=== PATIENT | female | born 1950 | race Caucasian/White ===

== ENCOUNTER 2016-07-19 19:14 | Inpatient (IN) | payer BC, OTHER ==
[~2016-07-19] VITALS: Ht 157.5 cm; Wt 92.3 kg
[~2016-07-19 19:14] MED LIST: CALC500C73 PO; CHOL100010 PO; CLOP1TAB15 PO; CZR50 PO; DULA0.5I INJ; FLUT0.15; GABA-113 PO; INSU100I2 SQ; INSUINJ4 SC; KFL500 PO; LPT/40 PO; LVNIS100 SQ; MULT-506 PO; PROBCAP PO; RXC5 PO; TRIATAB3 PO; VITA100C4 PO; VLM2 PO; VNTHFA/IN INH
[2016-07-19] MEDS ORDERED: ONDANSETRON INJ 2 MG/ML 2 ML VIAL IV STA ×2 (21:46→23:38)
[2016-07-19] MEDS ORDERED: SODIUM CHLORIDE 0.9% 1000ML 1,000 ML IV STA (21:46)
[2016-07-19] MEDS ORDERED: SODIUM CHLORIDE 0.9% 500ML 500 ML IV STA (21:46)
--- NOTE | 2016-07-19 22:17 | DIAGNOSTIC IMAGING REPORT ---
CHEST ONE VIEW PORTABLE CLINICAL HISTORY: cough/vomiting nausea COMPARISON STUDY: 01/27/2016 FINDINGS: Chronic parenchymal and/or pleural scarring left midlung and left base. No acute infiltrate. Diaphragms are smooth. IMPRESSION: Chronic change. No acute process. Electronically signed by: Joe Reeder M.D. 07/19/2016 10:15 PM Dictated Date/Time: 07/19/2016 10:15 PM
[2016-07-19 22:50] LABS: BASO % 0.1 %; BASO ABS # 0.01 K/uL (0-0.2); COMPLETE YES; EOS % 0.2 %; HEMATOCRIT 37.7 % (37-47); IG% 0.6 %; LYMPH % 24.4 %; LYMPH ABS # 2.36 K/uL (1.2-3.4); MEAN CELL VOLUME 79.4 fL (80-100); MEAN CORPUSCULAR HEMOGLOBIN 25.9 pg (25-34); MEAN CORPUSCULAR HGB CONC 32.6 g/dl (32-36); MEAN PLATELET VOLUME 9.2 fL (7.4-10.4); MONO % 11.6 %; NEUT % 63.1 %; PLATELET COUNT 398 K/uL (130-400); RED BLOOD COUNT 4.75 M/uL (4.2-5.4); WHITE BLOOD COUNT 9.68 K/uL (4.8-10.8)
[2016-07-19 23:05] LABS: BUN/CREATININE RATIO 18.8 (10-20); CALCIUM 9.6 mg/dl (8.5-10.1); CREATININE 1.7 mg/dl (0.60-1.20); MAGNESIUM 2.1 mg/dl (1.8-2.4)
[2016-07-19 23:07] LABS: INR 1.1 (0.9-1.1); PARTIAL THROMBOPLASTIN RATIO 0.9; PROTHROMBIN TIME (PATIENT) 11.3 SECONDS (9.0-12.0)
[2016-07-19 23:16] LABS: ALB/GLOB RATIO 1.1 (0.9-2); CKMB/CK RATIO 3.4 (0-3.0); THYROID STIMULATING HORMONE 0.844 uIu/ml (0.300-4.500)
[2016-07-19] MEDS ORDERED: CALC500C70 PO (23:22)
[2016-07-19] MEDS ORDERED: INSU3INJ3 SC (23:22)
[2016-07-19] MEDS ORDERED: GABA800T PO (23:22)
[2016-07-19] MEDS ORDERED: CHOL1CAP57 PO (23:22)
[2016-07-19] MEDS ORDERED: VTME100 PO (23:22)
[2016-07-19] MEDS ORDERED: CZR50 PO (23:22)
[2016-07-19] MEDS ORDERED: CEPH500C2 PO (23:22)
[2016-07-20 01:09] LABS: URINE APPEARANCE CLEAR (CLEAR); URINE BILIRUBIN NEG (NEG); URINE COLOR DK YELLOW; URINE EPITHELIAL CELL AUTO >30 /lpf (0-5); URINE NITRITE NEG (NEG); URINE SPECIFIC GRAVITY 1.026 (1.000-1.030); UROBILINOGEN NEG (NEG); ZZUR CULT IF INDIC CLEAN CATCH NO
[2016-07-20 01:14] LABS: MANUAL MICROSCOPIC REQUIRED? NO; REVIEW REQ? NO
[2016-07-20] MEDS ORDERED: IV FLUIDS COMPLETED PRN (01:15)
[2016-07-20 02:45] VITALS: BP 128/76; PULSE 74; TEMP 36.9; O2SAT 96; Ht 157.5 cm; Wt 92.3 kg
[2016-07-20] MEDS: ONDANSETRON INJ 2 MG/ML 2 ML VIAL IV PRN ×2 (03:09→20:46)
[2016-07-20] MEDS ORDERED: ACETAMINOPHEN 325 MG TAB PO PRN (04:15)
--- NOTE | 2016-07-20 05:45 | History and Physical ---
History & Physical Date & Time of Service: Jul 20, 2016 at ~ 00:30 . Chief Complaint: Nausea and vomiting . Primary Care Physician: Joe Renee M.D. . History of Present Illness Source: patient, clinic records, hospital records 66-year-old female followed by Dr. Renee. History of hypertension, diabetes, and other problems noted below. Developed chills, nausea, vomiting, and loose stools about 48 hours prior to admission. No fever or sweats. No abdominal pain. No hematemesis, melena, hematochezia. Recently prescribed doxycycline for bronchitis. . Past Medical/Surgical History Chronic and Resolved Medical Problems: (1) Garza's palsy Status: Chronic (2) CKD (chronic kidney disease), stage III Status: Chronic (3) CVA (cerebral vascular accident) Status: Chronic (4) DM type 2 (diabetes mellitus, type 2) Status: Chronic (5) Dyslipidemia Status: Chronic (6) Gastroparesis Status: Chronic (7) GERD (gastroesophageal reflux disease) Status: Chronic (8) Meniere disease Status: Chronic (9) BEE (obstructive sleep apnea) Status: Chronic (10) Osteoarthritis Status: Chronic (11) Osteoporosis Status: Chronic Surgical Problems: (1) H/O laminectomy Status: Chronic (2) H/O oophorectomy Status: Chronic (3) History of carpal tunnel surgery of left wrist Status: Chronic (4) History of carpal tunnel surgery of right wrist Status: Chronic (5) History of total left hip arthroplasty Permanent Comment: Status: Chronic (6) L femur ORIF Status: Chronic (7) S/P EHSAN (total abdominal hysterectomy) Status: Chronic (8) S/P trigger finge . Family History Diabetes mellitus FATHER Social History Smoking Status: Former Smoker Alcohol Use: none Immunizations History of Influenza Vaccine: Yes History of Tetanus Vaccine?: Unknown History of Pneumococcal: Yes History of Hepatitis B Vaccine: Unknown Multi-Drug Resistant Organisms History of MDRO: No Allergies Coded Allergies: Diphenhydramine (Verified Allergy, Mild, "SHAKING", 07/19/16) Promethazine (Verified Allergy, Mild, "SHAKING", 07/19/16) Estradiol (Verified Allergy, Unknown, UNKNOWN, 07/19/16) NSAIDs (Verified Allergy, Unknown, PT SWELLS "HEAD TO TOE", 07/19/16) Home Medications Scheduled Atorvastatin (Lipitor), 40 MG PO QAM Calcium/Vitamin D (Os-Rylan 500 Plus D), 1 TAB PO DAILY Cephalexin Monohydrate (Keflex), 500 MG PO QID Cholecalciferol (Vitamin D3), 1,000 UNITS PO DAILY Dulaglutide (Trulicity), 1 SYR INJ WK Gabapentin (Neurontin), 800 MG PO TID Insulin Detemir (Levemir Flextouch), 22 UNITS SC AMPM Insulin Lispro (Human) (Humalog Kwikpen), 7-10 UNITS SQ TID Losartan Potassium (Losartan Potassium), 50 MG PO DAILY Multivitamin (Multivitamin), 1 TAB PO QAM Probiotic Product (Planbus), 1 CAP PO HS Tocopheryl Acet,Dl-Alpha (Vitamin E), Unknown Dose PO DAILY Triamterene/Hctz (Triamterene/Hctz 37.5-25MG), 1 TAB PO QAM Scheduled PRN Albuterol Hfa (Ventolin Hfa), 2 PUFFS INH QID PRN for Shortness of Breath Diazepam (Diazepam), 1 TAB PO UD PRN for VERTIGO Review of Systems Constitutional: + chills, No fever, No sweats, No weight loss Eyes: No diplopia, No worsening of vision ENT: + nasal symptoms, No sore throat Respiratory: + cough, + shortness of breath (mild) Cardiovascular: No chest pain, No edema, No palpitations Abdomen: + problem reported (as noted above in HPI) Musculoskeletal: + joint pain Genitourinary - Female: No dysuria, No hematuria Neurologic: + problem reported (diabetic neuropathy), No memory loss, No weakness Endocrine: No excessive thirst Hematologic / Lymphatic: + abnormal bleeding/bruising (bruises easily), No swollen lymph nodes Integumentary: + new/changing skin lesions, + rash Physical Exam Vital Signs Date Time Temp Pulse Resp B/P Pulse Ox O2 Delivery O2 Flow Rate FiO2 07/20/16 02:25 76 20 156/88 96 07/20/16 01:39 76 18 152/76 98 Room Air 07/19/16 23:23 70 18 122/80 94 Room Air 07/19/16 22:27 75 18 110/64 95 Room Air 07/19/16 22:26 95 Room Air 07/19/16 22:22 85 20 133/76 97 Room Air 07/19/16 22:22 97 Room Air 07/19/16 22:15 76 07/19/16 22:01 85 20 133/76 97 Room Air 94 96/74 101 110/64 07/19/16 19:27 37.0 83 18 163/87 96 Room Air General Appearance: WD/WN, no apparent distress Head: normocephalic, atraumatic Eyes: normal inspection, PERRL, EOMI, sclerae normal ENT: normal ENT inspection, hearing grossly normal, pharynx normal Neck: supple, thyroid normal, no JVD, trachea midline Respiratory/Chest: + rhonchi (few), + wheezing (mild) Cardiovascular: regular rate, rhythm, no edema, no gallop, no JVD Abdomen/GI: non tender, soft, no organomegaly, no pulsatile mass, + pertinent finding (quite bowel sounds) Extremities/Musculoskelatal: normal inspection, no calf tenderness, no pedal edema Neurologic/Psych: account executive II-XII nml as tested (PERRL, EOMI), no motor/sensory deficits (motor strength grossly intact), normal mood/affect, oriented x 3 Skin: normal color, warm/dry, no rash Lymphatic: no adenopathy Diagnostics Laboratory Results Results Past 24 Hours Test 07/19/16 22:22 07/19/16 22:24 07/20/16 00:00 Range/Units White Blood Count 9.68 4.8-10.8 K/uL Red Blood Count 4.75 4.2-5.4 M/uL Hemoglobin 12.3 12.0-16.0 g/dL Hematocrit 37.7 37-47 % Mean Corpuscular Volume 79.4 80-100 fL Mean Corpuscular Hemoglobin 25.9 25-34 pg Mean Corpuscular Hemoglobin Concent 32.6 32-36 g/dl Platelet Count 398 130-400 K/uL Mean Platelet Volume 9.2 7.4-10.4 fL Neutrophils (%) (Auto) 63.1 % Lymphocytes (%) (Auto) 24.4 % Monocytes (%) (Auto) 11.6 % Eosinophils (%) (Auto) 0.2 % Basophils (%) (Auto) 0.1 % Neutrophils # (Auto) 6.11 1.4-6.5 K/uL Lymphocytes # (Auto) 2.36 1.2-3.4 K/uL Monocytes # (Auto) 1.12 0.11-0.59 K/uL Eosinophils # (Auto) 0.02 0-0.5 K/uL Basophils # (Auto) 0.01 0-0.2 K/uL RDW Standard Deviation 53.2 36.4-46.3 fL RDW Coefficient of Variation 18.3 11.5-14.5 % Immature Granulocyte % (Auto) 0.6 % Immature Granulocyte # (Auto) 0.06 0.00-0.02 K/uL Prothrombin Time 11.3 9.0-12.0 SECONDS Prothromb Time International Ratio 1.1 0.9-1.1 Activated Partial Thromboplast Time 24.0 21.0-31.0 SECONDS Partial Thromboplastin Ratio 0.9 Sodium Level 138 136-145 mmol/L Potassium Level 4.0 3.5-5.1 mmol/L Chloride Level 101 98-107 mmol/L Carbon Dioxide Level 26 21-32 mmol/L Anion Gap 11.0 3-11 mmol/L Blood Urea Nitrogen 32 7-18 mg/dl Creatinine 1.70 0.60-1.20 mg/dl Est Creatinine Clear Calc Drug Dose 33.7 ml/min Estimated GFR () 35.3 Estimated GFR (Non- 30.5 BUN/Creatinine Ratio 18.8 10-20 Random Glucose 211 70-99 mg/dl Calcium Level 9.6 8.5-10.1 mg/dl Magnesium Level 2.1 1.8-2.4 mg/dl Total Bilirubin 0.4 0.2-1 mg/dl Aspartate Amino Transf (AST/SGOT) 17 15-37 U/L Alanine Aminotransferase (ALT/SGPT) 23 12-78 U/L Alkaline Phosphatase 84 45-117 U/L Total Creatine Kinase 145 26-192 U/L Creatine Kinase MB 5.0 0.5-3.6 ng/ml Creatine Kinase MB Ratio 3.4 0-3.0 Total Protein 7.4 6.4-8.2 gm/dl Albumin 3.8 3.4-5.0 gm/dl Globulin 3.6 2.5-4.0 gm/dl Albumin/Globulin Ratio 1.1 0.9-2 Lipase 55 73-393 U/L Thyroid Stimulating Hormone (TSH) 0.844 0.300-4.500 uIu/ml Bedside Troponin I 0.000 0-0.045 ng/ml Urine Color DK YELLOW Urine Appearance CLEAR CLEAR Urine pH 5.0 4.5-7.5 Urine Specific [place] 1.026 1.000-1.030 Urine Protein 2+ NEG Urine Glucose (UA) 1+ NEG Urine Ketones TRACE NEG Urine Occult Blood NEG NEG Urine Nitrite NEG NEG Urine Bilirubin NEG NEG Urine Urobilinogen NEG NEG Urine Leukocyte Esterase NEG NEG Urine WBC (Auto) 1-5 0-5 /hpf Urine RBC (Auto) 0-4 0-4 /hpf Urine Hyaline Casts (Auto) 10-30 0-5 /lpf Urine Epithelial Cells (Auto) >30 0-5 /lpf Urine Bacteria (Auto) NEG NEG Diagnostic Radiology CHEST ONE VIEW PORTABLE CLINICAL HISTORY: cough/vomiting nausea COMPARISON STUDY: 01/27/2016 FINDINGS: Chronic parenchymal and/or pleural scarring left midlung and left base. No acute infiltrate. Diaphragms are smooth. IMPRESSION: Chronic change. No acute process. Electronically signed by: Joe Reeder M.D. 07/19/2016 10:15 PM . EKG EKG performed at 22:05 reviewed and demonstrated normal sinus rhythm at 80/ minute, nonspecific T wave changes laterally. . Impression Assessment and Plan NAUSEA / VOMITING / DIARRHEA Probable gastroenteritis. Consider Clostridium difficile colitis. Check stools for C diff. IV fluids. Clear liquid diet; advance as tolerated. Antiemetics PRN. ACUTE KIDNEY INJURY Serum creatinine 1.7 compared to baseline of 1.0. Acute kidney injury most likely secondary to volume depletion due to GI symptoms. IV fluids. Follow. HYPERTENSION Hold triamterene/chlorothiazide due to GI symptoms. Continue losartan. Follow and titrate therapy. DM TYPE II Usually well-controlled. Minimal by mouth intake over last 48 hours. Insulin coverage as necessary. VTE PROPHYLAXIS Moderate risk for VTE. Subcutaneous enoxaparin. Ambulate. RESUSCITATION STATUS Discussed with patient. She does not have a living will. She would like resuscitation attempted in the event of a cardiopulmonary arrest if there is a reasonable chance of a meaningful recovery, but does not want prolonged extraordinary measures if prognosis is poor. Therefore, code status = "Level 1" (full resuscitation). DISPOSITION Observation status on Med-Surg Unit. Expected discharge to home. Family Medicine follow-up with Dr. Rozick. . VTE Prophylaxis VTE Risk Assessment Done? Y/N: Yes Risk Level: Moderate Given or contraindicated: Enoxaparin (Lovenox)SQ
[2016-07-20] MEDS ORDERED: GLUCOSE 10 TABS/TUBE PO PRN (06:00)
[2016-07-20] MEDS ORDERED: GLUCAGON FOR INJ 1 MG VIAL SQ PRN (06:00)
[2016-07-20] MEDS ORDERED: DEXTROSE 50% 50 ML SYR IV PRN (06:00)
[2016-07-20] MEDS ORDERED: GLUCOSE 40% GEL 15 GM TUBE PO PRN (06:00)
[2016-07-20 07:30] VITALS: BP 132/72; PULSE 69; TEMP 36.9; O2SAT 95
[2016-07-20] MEDS: LACTATED RINGER'S 1000ML 1,000 ML IV SCH ×2 (07:31→17:24)
[2016-07-20] MEDS: METOCLOPRAMIDE HCL INJ 5 MG/ML 2 ML VIAL IV. SCH ×3 (07:32→17:24)
[2016-07-20 07:54] LABS: BUN/CREATININE RATIO 20.2 (10-20); CREATININE 1.7 mg/dl (0.60-1.20); POTASSIUM 3.9 mmol/L (3.5-5.1)
[2016-07-20] MEDS: LOSARTAN POTASSIUM 50 MG TAB PO SCH (08:16)
[2016-07-20] MEDS: ENOXAPARIN 40 MG/0.4 ML SYR SQ SCH (08:17)
[2016-07-20] MEDS: INSULIN ASPART 100 UNITS/ML 3 ML PEN SC SCH ×4 (08:19→20:54)
[2016-07-20 15:28] VITALS: BP 98/64; PULSE 69; TEMP 37; O2SAT 96
--- NOTE | 2016-07-20 15:53 | Progress Note ---
Medicine Progress Note Date & Time of Visit: Jul 20, 2016 at 15:40. Subjective Pt was seen and examined Sitting in bed comfortable with no distress Pt said that she feels fine she said that her nausea and vomiting resolved she said that she tolerated clear liquid diet well denies any chest pain, palpitation, dizziness and sob Objective Last 8 Hrs Date Time Temp Pulse Resp B/P Pulse Ox O2 Delivery O2 Flow Rate FiO2 07/20/16 15:28 37.0 69 20 98/64 96 Room Air 07/20/16 11:44 Room Air Physical Exam: General- No acute distress Head- atraumatic Eyes- PERRL, EOMI ENT- oropharynx clear Neck- supple, no JVD Lungs- very mild coarse BS Heart- regular rhythm no gallop Abdomen- normal bowel sounds, soft, nontender Extremities-edema, no calf tenderness Neuro- alert, oriented x 3; PERRL, EOMI Skin- warm & dry Laboratory Results: Last 24 Hours Test 07/19/16 22:22 07/19/16 22:24 07/20/16 00:00 07/20/16 06:40 White Blood Count 9.68 K/uL Red Blood Count 4.75 M/uL Hemoglobin 12.3 g/dL Hematocrit 37.7 % Mean Corpuscular Volume 79.4 fL Mean Corpuscular Hemoglobin 25.9 pg Mean Corpuscular Hemoglobin Concent 32.6 g/dl Platelet Count 398 K/uL Mean Platelet Volume 9.2 fL Neutrophils (%) (Auto) 63.1 % Lymphocytes (%) (Auto) 24.4 % Monocytes (%) (Auto) 11.6 % Eosinophils (%) (Auto) 0.2 % Basophils (%) (Auto) 0.1 % Neutrophils # (Auto) 6.11 K/uL Lymphocytes # (Auto) 2.36 K/uL Monocytes # (Auto) 1.12 K/uL Eosinophils # (Auto) 0.02 K/uL Basophils # (Auto) 0.01 K/uL RDW Standard Deviation 53.2 fL RDW Coefficient of Variation 18.3 % Immature Granulocyte % (Auto) 0.6 % Immature Granulocyte # (Auto) 0.06 K/uL Prothrombin Time 11.3 SECONDS Prothromb Time International Ratio 1.1 Activated Partial Thromboplast Time 24.0 SECONDS Partial Thromboplastin Ratio 0.9 Sodium Level 138 mmol/L 140 mmol/L Potassium Level 4.0 mmol/L 3.9 mmol/L Chloride Level 101 mmol/L 103 mmol/L Carbon Dioxide Level 26 mmol/L 26 mmol/L Anion Gap 11.0 mmol/L 11.0 mmol/L Blood Urea Nitrogen 32 mg/dl 34 mg/dl Creatinine 1.70 mg/dl 1.70 mg/dl Est Creatinine Clear Calc Drug Dose 33.7 ml/min 33.5 ml/min Estimated GFR () 35.3 35.3 Estimated GFR (Non- 30.5 30.5 BUN/Creatinine Ratio 18.8 20.2 Random Glucose 211 mg/dl 222 mg/dl Calcium Level 9.6 mg/dl 9.0 mg/dl Magnesium Level 2.1 mg/dl Total Bilirubin 0.4 mg/dl Aspartate Amino Transf (AST/SGOT) 17 U/L Alanine Aminotransferase (ALT/SGPT) 23 U/L Alkaline Phosphatase 84 U/L Total Creatine Kinase 145 U/L Creatine Kinase MB 5.0 ng/ml Creatine Kinase MB Ratio 3.4 Total Protein 7.4 gm/dl Albumin 3.8 gm/dl Globulin 3.6 gm/dl Albumin/Globulin Ratio 1.1 Lipase 55 U/L Thyroid Stimulating Hormone (TSH) 0.844 uIu/ml Bedside Troponin I 0.000 ng/ml Urine Color DK YELLOW Urine Appearance CLEAR Urine pH 5.0 Urine Specific [place] 1.026 Urine Protein 2+ Urine Glucose (UA) 1+ Urine Ketones TRACE Urine Occult Blood NEG Urine Nitrite NEG Urine Bilirubin NEG Urine Urobilinogen NEG Urine Leukocyte Esterase NEG Urine WBC (Auto) 1-5 /hpf Urine RBC (Auto) 0-4 /hpf Urine Hyaline Casts (Auto) 10-30 /lpf Urine Epithelial Cells (Auto) >30 /lpf Urine Bacteria (Auto) NEG Test 07/20/16 07:52 07/20/16 11:27 Bedside Glucose 218 mg/dl 213 mg/dl Assessment & Plan NAUSEA / VOMITING / DIARRHEA Probable viral gastroenteritis.. Tolerated clear liquid diet, will advance diet Antiemetics PRN. Resolved ACUTE KIDNEY INJURY Serum creatinine 1.7 compared to baseline of 1.0. Acute kidney injury most likely secondary to volume depletion due to GI symptoms. Continue IV fluids. Check BMP in am HYPERTENSION Hold triamterene/chlorothiazide due to GI symptoms. Continue losartan. Will monitor BP DM TYPE II controlled Last Hba1c 6.5 on 06/18/16 continue monitor BS VTE PROPHYLAXIS Moderate risk for VTE. Subcutaneous enoxaparin. Ambulate. RESUSCITATION STATUS FULL CODE DISPOSITION Possible discharge tomorrow if creatine back to baseline. Current Inpatient Medications: Current Inpatient Medications Medications (Trade) Dose Ordered Sig/Kavita Route Start Time Stop Time Status Last Admin Dose Admin Enoxaparin Sodium (Lovenox Inj) 40 mg DAILY SQ 07/20/16 08:00 08/19/16 08:59 07/20/16 08:17 40 MG Ondansetron HCl (Zofran Inj) 4 mg Q6H PRN IV 07/20/16 00:30 08/19/16 00:29 07/20/16 03:09 4 MG Miscellaneous (Iv Fluids Completed) 1 ea PRN PRN N/A 07/20/16 01:15 07/20/17 01:14 Acetaminophen (Tylenol Tab) 650 mg Q4H PRN PO 07/20/16 04:15 08/19/16 04:14 07/20/16 04:36 650 MG Losartan Potassium (coZAAR TAB) 50 mg DAILY PO 07/20/16 08:00 08/19/16 07:59 07/20/16 08:16 50 MG Insulin Aspart SLIDING SCALE G... ACHS SC 07/20/16 06:30 08/19/16 06:29 07/20/16 12:58 6 UNITS Lactated Ringer's (Lr 1000ml) 1,000 ml @ 100 mls/hr Q10H IV 07/20/16 05:45 08/19/16 05:44 07/20/16 07:31 100 MLS/HR Metoclopramide HCl (Reglan Inj) 5 mg AC IV. 07/20/16 06:30 07/20/16 16:31 07/20/16 12:09 5 MG Glucose (Glucose 40% Gel) 15-30 GRAMS 15 GRAMS... UD PRN PO 07/20/16 06:00 08/19/16 05:59 Glucose (Glucose Chew Tab) 4-8 Tablets 4 Tabl... UD PRN PO 07/20/16 06:00 08/19/16 05:59 Dextrose (Dextrose 50% 50ML Syringe) 25-50ML OF 50% DW IV FOR... UD PRN IV 07/20/16 06:00 08/19/16 05:59 Glucagon (Glucagon Inj) 1 mg UD PRN SQ 07/20/16 06:00 08/19/16 05:59
[2016-07-21 00:28] VITALS: BP 151/84; PULSE 75; TEMP 36.7; O2SAT 92
[2016-07-21] MEDS: LACTATED RINGER'S 1000ML 1,000 ML IV SCH (02:09)
[2016-07-21 07:48] VITALS: BP 130/81; PULSE 75; TEMP 36.6; O2SAT 95
[2016-07-21 07:55] LABS: HEMATOCRIT 37.2 % (37-47); MEAN CELL VOLUME 82.3 fL (80-100); MEAN CORPUSCULAR HEMOGLOBIN 25.7 pg (25-34); MEAN CORPUSCULAR HGB CONC 31.2 g/dl (32-36); MEAN PLATELET VOLUME 9.5 fL (7.4-10.4); PLATELET COUNT 378 K/uL (130-400); RED BLOOD COUNT 4.52 M/uL (4.2-5.4); WHITE BLOOD COUNT 9.28 K/uL (4.8-10.8)
[2016-07-21 08:22] LABS: BUN/CREATININE RATIO 17.4 (10-20); CALCIUM 8.7 mg/dl (8.5-10.1); CREATININE 1.6 mg/dl (0.60-1.20); POTASSIUM 4.1 mmol/L (3.5-5.1)
[2016-07-21] MEDS: LOSARTAN POTASSIUM 50 MG TAB PO SCH (08:59)
[2016-07-21] MEDS: ENOXAPARIN 40 MG/0.4 ML SYR SQ SCH (09:00)
[2016-07-21] MEDS: INSULIN ASPART 100 UNITS/ML 3 ML PEN SC SCH ×2 (09:04→13:02)
[2016-07-21] MEDS ORDERED: NURSING VERBAL MED ORDER ONE (12:45)
--- NOTE | 2016-07-21 13:34 | Discharge Instructions ---
Discharge Instructions Date of Service Jul 21, 2016. Admission Reason for Admission: Intractable Nausea And Vomiting Discharge Discharge Diagnosis / Problem: Gastroenteritis, Acute kidney injury Discharge Goals Goal(s): Decrease discomfort, Improve function, Improve disease control Activity Recommendations Activity Limitations: resume your previous activity (as tolerated) . Instructions / Follow-Up Instructions / Follow-Up Please follow up with Dr. Andrew (Dr. Renee Partner) on July 23 at 9:50 am Check BMP in 2 days. Script given Hold Losartan and Triamterene/HCTZ until seeing with PCP on Tuesday No NSAIDs for now (such as ibuprofen, motrin, aleve, naproxen) If nausea/vomiting/ diarrhea reoccurs please seek medical attention Current Hospital Diet Patient's current hospital diet: Diabetes Type 2 Diet Discharge Diet Recommended Diet: Diabetes Type 2 Diet Pending Studies Studies pending at discharge: no Medical Emergencies . Who to Call and When: Medical Emergencies: If at any time you feel your situation is an emergency, please call 911 immediately. . Non-Emergent Contact Non-Emergency issues call your: Primary Care Provider Call Non-Emergent contact if: you have a fever, you have any medication questions . . "Provider Documentation" section prepared by Abram Gil. VTE Core Measure Inpt VTE Proph given/why not?: Enoxaparin (Lovenox)SQ
[2016-07-21 13:53] VITALS: BP 130/81; PULSE 75; TEMP 36.6; O2SAT 95
--- NOTE | 2016-07-21 19:21 | Progress Note ---
Medicine Progress Note Date & Time of Visit: Jul 21, 2016 at 13:54. Subjective Pt was seen and examined sitting in chair comfortable dressed already to be discharged she was eating her lunch Pt said that she tolerated her diet since yesterday Nausea and vomiting resolved Pt said that she has to leave today she said that she had 2 episodes of watery diarrhea this morning she states now the stool is form she said that she feels good explained to patient about the risk for leaving she understands the risk such as renal failure and esrd on HD she said that she will monitor the bmp with her pcp Objective Last 8 Hrs Date Time Temp Pulse Resp B/P Pulse Ox O2 Delivery O2 Flow Rate FiO2 07/21/16 08:00 Room Air 07/21/16 07:48 36.6 75 16 130/81 95 Room Air Physical Exam: General- No acute distress Head- atraumatic Eyes- PERRL, EOMI ENT- oropharynx clear Neck- supple, no JVD Lungs- very mild coarse BS Heart- regular rhythm no gallop Abdomen- normal bowel sounds, soft, nontender Extremities-edema, no calf tenderness Neuro- alert, oriented x 3; PERRL, EOMI Skin- warm & dry Laboratory Results: Last 24 Hours Test 07/20/16 16:42 07/20/16 20:23 07/21/16 07:21 07/21/16 07:30 Bedside Glucose 193 mg/dl 247 mg/dl 198 mg/dl White Blood Count 9.28 K/uL Red Blood Count 4.52 M/uL Hemoglobin 11.6 g/dL Hematocrit 37.2 % Mean Corpuscular Volume 82.3 fL Mean Corpuscular Hemoglobin 25.7 pg Mean Corpuscular Hemoglobin Concent 31.2 g/dl RDW Standard Deviation 55.7 fL RDW Coefficient of Variation 18.5 % Platelet Count 378 K/uL Mean Platelet Volume 9.5 fL Sodium Level 140 mmol/L Potassium Level 4.1 mmol/L Chloride Level 106 mmol/L Carbon Dioxide Level 27 mmol/L Anion Gap 7.0 mmol/L Blood Urea Nitrogen 28 mg/dl Creatinine 1.60 mg/dl Est Creatinine Clear Calc Drug Dose 35.6 ml/min Estimated GFR () 38.0 Estimated GFR (Non- 32.8 BUN/Creatinine Ratio 17.4 Random Glucose 213 mg/dl Calcium Level 8.7 mg/dl Test 07/21/16 11:12 Bedside Glucose 254 mg/dl Assessment & Plan NAUSEA / VOMITING / DIARRHEA Probable viral gastroenteritis.. Tolerated regular diet Antiemetics PRN. Resolved ACUTE KIDNEY INJURY Serum creatinine 1.7 compared to baseline of 1.0. Acute kidney injury most likely secondary to volume depletion due to GI symptoms. creatine improved to 1.6 Advised pt to avoid nephrotoxic agents such as NSAIDs. Pt wants to leave today Continue IV fluids. I made a close follow up appt for her on Tuesday with Dr. Patel at 9:50 am Check BMP in 2 days HYPERTENSION Hold triamterene/chlorothiazide due to GI symptoms. Continue losartan. Will monitor BP DM TYPE II controlled Last Hba1c 6.5 on 06/18/16 continue monitor BS VTE PROPHYLAXIS Moderate risk for VTE. Subcutaneous enoxaparin. Ambulate. RESUSCITATION STATUS FULL CODE DISPOSITION discharge home today Please follow up with Dr. Andrew (Dr. Renee Partner) on July 23 at 9:50 am Check BMP in 2 days. Script given Hold Losartan and Triamterene/HCTZ until seeing with PCP on Tuesday No NSAIDs for now (such as ibuprofen, motrin, aleve, naproxen) If nausea/vomiting/ diarrhea reoccurs please seek medical attention Current Inpatient Medications: Current Inpatient Medications Medications (Trade) Dose Ordered Sig/Kavita Route Start Time Stop Time Status Last Admin Dose Admin Enoxaparin Sodium (Lovenox Inj) 40 mg DAILY SQ 07/20/16 08:00 08/19/16 08:59 07/21/16 09:00 40 MG Ondansetron HCl (Zofran Inj) 4 mg Q6H PRN IV 07/20/16 00:30 08/19/16 00:29 07/20/16 20:46 4 MG Miscellaneous (Iv Fluids Completed) 1 ea PRN PRN N/A 07/20/16 01:15 07/20/17 01:14 Acetaminophen (Tylenol Tab) 650 mg Q4H PRN PO 07/20/16 04:15 08/19/16 04:14 07/20/16 04:36 650 MG Losartan Potassium (coZAAR TAB) 50 mg DAILY PO 07/20/16 08:00 08/19/16 07:59 07/21/16 08:59 50 MG Insulin Aspart (novoLOG ASPART) SLIDING SCALE G... ACHS SC 07/20/16 06:30 08/19/16 06:29 07/21/16 13:02 6 UNITS Glucose (Glucose 40% Gel) 15-30 GRAMS 15 GRAMS... UD PRN PO 07/20/16 06:00 08/19/16 05:59 Glucose (Glucose Chew Tab) 4-8 Tablets 4 Tabl... UD PRN PO 07/20/16 06:00 08/19/16 05:59 Dextrose (Dextrose 50% 50ML Syringe) 25-50ML OF 50% DW IV FOR... UD PRN IV 07/20/16 06:00 08/19/16 05:59 Glucagon (Glucagon Inj) 1 mg UD PRN SQ 07/20/16 06:00 08/19/16 05:59
--- NOTE | 2016-07-22 07:04 | EMERGENCY ROOM VISIT NOTE ---
History First contact with patient: 21:33 Chief Complaint: VOMITING Stated Complaint: INTRACTABLE NAUSEA AND VOMITING Nursing Triage Summary: pt reports NV since sat. recieved an abx for congestion. has had itchiness to skin since take the med History of Present Illness The patient is a 66 year old female who presents to the Emergency Department by private vehicle for evaluation of her nausea and vomiting. She reports that on Tuesday afternoon she developed nausea with associated vomiting. This was shortly after eating at a restaurant. She's had no diarrhea. Last week, she was experiencing some chest congestion which had since resolved. She did have a mild cough which persisted, however. She did try a family members Zofran earlier today which did help with her symptoms for a while. She reports that despite this, her symptoms have persisted and worsened. She denies any abdominal pain or diarrhea. She denies any blood in her vomit. She rates her current discomfort as a 0/10. She denies any blurry vision, double vision, neck pain/tightness, chest pain, palpitations, short of breath, hematochezia, melena, hematuria, or dysuria. Review of Systems A complete 10-point Review of Systems was discussed with the patient, with pertinent positives and negatives listed in the History of Present Illness. All remaining Review of Systems questions can be considered negative unless otherwise specified. Past Medical/Surgical History Medical Problems: (1) Garza's palsy (2) CKD (chronic kidney disease), stage III (3) CVA (cerebral vascular accident) (4) DM type 2 (diabetes mellitus, type 2) (5) Dyslipidemia (6) Gastroparesis (7) GERD (gastroesophageal reflux disease) (8) Intractable nausea and vomiting (9) Meniere disease (10) BEE (obstructive sleep apnea) (11) Osteoarthritis (12) Osteoporosis Surgical Problems: (1) H/O laminectomy (2) H/O oophorectomy (3) History of carpal tunnel surgery of left wrist (4) History of carpal tunnel surgery of right wrist (5) History of total left hip arthroplasty (6) L femur ORIF (7) S/P EHSAN (total abdominal hysterectomy) (8) S/P trigger finger release Family History Diabetes mellitus FATHER Social History Smoking Status: Former Smoker Smokeless Tobacco Use: No Alcohol Use: none Drug Use: none Housing Status: lives with family Current/Historical Medications Scheduled Atorvastatin (Lipitor), 40 MG PO QAM Calcium/Vitamin D (Os-Rylan 500 Plus D), 1 TAB PO DAILY Cephalexin Monohydrate (Keflex), 500 MG PO QID Cholecalciferol (Vitamin D3), 1,000 UNITS PO DAILY Dulaglutide (Trulicity), 1 SYR INJ WK Gabapentin (Neurontin), 800 MG PO TID Insulin Detemir (Levemir Flextouch), 22 UNITS SC AMPM Insulin Lispro (Human) (Humalog Kwikpen), 7-10 UNITS SQ TID Losartan Potassium (Losartan Potassium), 50 MG PO DAILY Multivitamin (Multivitamin), 1 TAB PO QAM Probiotic Product (Tailored), 1 CAP PO HS Tocopheryl Acet,Dl-Alpha (Vitamin E), Unknown Dose PO DAILY Triamterene/Hctz (Triamterene/Hctz 37.5-25MG), 1 TAB PO QAM Scheduled PRN Albuterol Hfa (Ventolin Hfa), 2 PUFFS INH QID PRN for Shortness of Breath Diazepam (Diazepam), 1 TAB PO UD PRN for VERTIGO Allergies Coded Allergies: Diphenhydramine (Verified Allergy, Mild, "SHAKING", 07/19/16) Promethazine (Verified Allergy, Mild, "SHAKING", 07/19/16) Estradiol (Verified Allergy, Unknown, UNKNOWN, 07/19/16) NSAIDs (Verified Allergy, Unknown, PT SWELLS "HEAD TO TOE", 07/19/16) Physical Exam Vital Signs Date Time Temp Pulse Resp B/P Pulse Ox O2 Delivery O2 Flow Rate FiO2 07/19/16 23:23 70 18 122/80 94 Room Air 07/19/16 22:27 75 18 110/64 95 Room Air 07/19/16 22:26 95 Room Air 07/19/16 22:22 85 20 133/76 97 Room Air 07/19/16 22:22 97 Room Air 07/19/16 22:15 76 07/19/16 22:01 85 20 133/76 97 Room Air 94 96/74 101 110/64 07/19/16 19:27 37.0 83 18 163/87 96 Room Air Pain Rating (0-10): 0 Physical Exam VITAL SIGNS - Vital signs and nursing notes were reviewed. GENERAL - 66-year-old female appearing her stated age who is in no acute distress. Communicates well with provider and answers questions appropriately. HEAD - NC/AT. EYES - PERRL with EOMI bilaterally. Sclera anicteric. Palpebral conjunctiva pink and moist with no injection noted. EARS - No deformities of external structures noted on gross examination bilaterally. No pain elicited with palpation of the tragus bilaterally. External auditory canals without discharge or otorrhea. Tympanic membranes pearly knight without retraction or bulging. NOSE - Midline and without cyanosis. No epistaxis or purulent drainage noted. Septum midline without deviation or septal hematoma noted. MOUTH/OROPHARYNX - Without perioral cyanosis. Buccal mucosa pink and moist and without leukoplakia. Tongue midline with equal elevation of palate bilaterally. No tonsillar hypertrophy, erythema, or exudates noted. NECK - Neck with FROM. Supple to palpation. No nuchal rigidity. LUNGS - Chest wall symmetric without accessory muscle use, intercostals retractions, or central cyanosis. Normal vesicular breath sounds CTA B/L. No wheezes, rales, or rhonchi appreciated. CARDIAC - RRR with S1/S2. No murmur, rubs, or gallops appreciated. ABDOMEN - Abdominal contour obese and without pulsations or visible masses. BS normoactive all four quadrants. No tenderness to palpation appreciated throughout. No guarding. No Rebound Tenderness. Negative Rovsing's. Negative Oakley's. No palpable masses, hepatosplenomegaly, or ascites noted. EXTREMITIES - No clubbing or peripheral cyanosis. No pretibial edema present. +3 /5 radial and dorsalis pedis pulses palpated throughout. PSYCH - A&Ox3 and cooperates fully with examiner. Pt is very pleasant and interacts well with examiner. Medical Decision & Procedures ER Provider Diagnostic Interpretation: Radiological imaging and reports were reviewed by myself. Radiologist's Interpretation as follows: CHEST ONE VIEW PORTABLE CLINICAL HISTORY: cough/vomiting nausea COMPARISON STUDY: 01/27/2016 FINDINGS: Chronic parenchymal and/or pleural scarring left midlung and left base. No acute infiltrate. Diaphragms are smooth. IMPRESSION: Chronic change. No acute process. Laboratory Results Test 07/19/16 22:22 07/19/16 22:24 07/20/16 00:00 Immature Granulocyte % (Auto) 0.6 % White Blood Count 9.68 K/uL (4.8-10.8) Red Blood Count 4.75 M/uL (4.2-5.4) Hemoglobin 12.3 g/dL (12.0-16.0) Hematocrit 37.7 % (37-47) Mean Corpuscular Volume 79.4 fL (80-100) Mean Corpuscular Hemoglobin 25.9 pg (25-34) Mean Corpuscular Hemoglobin Concent 32.6 g/dl (32-36) Platelet Count 398 K/uL (130-400) Mean Platelet Volume 9.2 fL (7.4-10.4) Neutrophils (%) (Auto) 63.1 % Lymphocytes (%) (Auto) 24.4 % Monocytes (%) (Auto) 11.6 % Eosinophils (%) (Auto) 0.2 % Basophils (%) (Auto) 0.1 % Neutrophils # (Auto) 6.11 K/uL (1.4-6.5) Lymphocytes # (Auto) 2.36 K/uL (1.2-3.4) Monocytes # (Auto) 1.12 K/uL (0.11-0.59) Eosinophils # (Auto) 0.02 K/uL (0-0.5) Basophils # (Auto) 0.01 K/uL (0-0.2) Immature Granulocyte # (Auto) 0.06 K/uL (0.00-0.02) Prothrombin Time 11.3 SECONDS (9.0-12.0) Prothromb Time International Ratio 1.1 (0.9-1.1) Activated Partial Thromboplast Time 24.0 SECONDS (21.0-31.0) Partial Thromboplastin Ratio 0.9 Magnesium Level 2.1 mg/dl (1.8-2.4) Total Bilirubin 0.4 mg/dl (0.2-1) Aspartate Amino Transf (AST/SGOT) 17 U/L (15-37) Alanine Aminotransferase (ALT/SGPT) 23 U/L (12-78) Alkaline Phosphatase 84 U/L (45-117) Total Creatine Kinase 145 U/L (26-192) Creatine Kinase MB 5.0 ng/ml (0.5-3.6) Creatine Kinase MB Ratio 3.4 (0-3.0) Total Protein 7.4 gm/dl (6.4-8.2) Albumin 3.8 gm/dl (3.4-5.0) Globulin 3.6 gm/dl (2.5-4.0) Albumin/Globulin Ratio 1.1 (0.9-2) Lipase 55 U/L (73-393) Thyroid Stimulating Hormone (TSH) 0.844 uIu/ml (0.300-4.500) Bedside Troponin I 0.000 ng/ml (0-0.045) Urine Color DK YELLOW Urine Appearance CLEAR (CLEAR) Urine pH 5.0 (4.5-7.5) Urine Specific [place] 1.026 (1.000-1.030) Urine Protein 2+ (NEG) Urine Glucose (UA) 1+ (NEG) Urine Ketones TRACE (NEG) Urine Occult Blood NEG (NEG) Urine Nitrite NEG (NEG) Urine Bilirubin NEG (NEG) Urine Urobilinogen NEG (NEG) Urine Leukocyte Esterase NEG (NEG) Urine WBC (Auto) 1-5 /hpf (0-5) Urine RBC (Auto) 0-4 /hpf (0-4) Urine Hyaline Casts (Auto) 10-30 /lpf (0-5) Urine Epithelial Cells (Auto) >30 /lpf (0-5) Urine Bacteria (Auto) NEG (NEG) Medications Administered Medications (Trade) Dose Ordered Sig/Kavita Route Start Time Stop Time Status Last Admin Dose Admin Sodium Chloride 500 ml @ 999 mls/hr Q31M STAT IV 07/19/16 21:46 07/19/16 22:16 DC 07/19/16 22:20 999 MLS/HR Sodium Chloride (Nss 1000ml) 1,000 ml @ 125 mls/hr Q8H STAT IV 07/19/16 21:46 07/20/16 02:48 DC 07/19/16 22:20 125 MLS/HR Ondansetron HCl (Zofran Inj) 4 mg NOW STAT IV 07/19/16 21:46 07/19/16 21:49 DC 07/19/16 22:20 4 MG Ondansetron HCl (Zofran Inj) 4 mg NOW STAT IV 07/19/16 23:38 07/19/16 23:39 DC 07/20/16 00:03 4 MG Procedure Patient was placed on the program writer and monitored throughout the entire extent of their stay. In addition, the patient's pulse oximetry was monitored throughout the entire stay. Any abnormalities or aberrancies were addressed appropriately. ECG Indication: vomiting Rate (beats per minute): 77 Rhythm: normal sinus Findings: T-wave inversion (Lateral), no ectopy Comparison ECG Date: T-wave inverstions in lateral leads new when compared to 01/27/2016. ED Course Patient was seen and evaluated by myself. Labs were drawn, saline lock in place. EKG and chest x-rays were obtained. The patient was hydrated with a 500 mL normal saline bolus. She received 4 mg Zofran intravenously for nausea. Laboratory results demonstrate no acute leukocytosis, worrisome anemia, or bandemia. The patient has no significant electrolyte abnormalities. Cardiac enzymes are not elevated. Creatinine was found to be elevated at 1.7 which is elevated from baseline. Patient was continued to be hydrated with normal saline at a rate of 125 mL per hour. She was treated with an additional formerly grams Zofran. Case was discussed with my attending physician who agrees the diagnostic approach and treatment plan. The patient was admitted to the [facility] hospitalist service for further evaluation and management. Patient admitted in stable condition. Medical Decision Given the patient's presentation and stated complaints, I did elect to perform the above-mentioned workup. The patient presents today with persistent nausea and vomiting. She is a diabetic. Her creatinine was elevated from baseline. In addition, she does have some lateral T-wave inversions which are new from 2016. The patient was admitted to hospitalist service for further evaluation and management. Patient was admitted in stable condition. In the evaluation and treatment of this patient, the following differential diagnoses were considered: Appendicitis, Diverticulitis, Diverticulosis, Colitis , Ischemic Colitis, Inflammatory Bowel Disease, Irritable Bowel Disease, Kidney Stone, Pyelonephritis, Hydronephrosis, Cholecystitis, Ascending Cholangitis, Choledocholithiasis, GERD. Impression Primary Impression: Vomiting Additional Impression: Acute kidney injury Departure Information Dispostion Admitted as an inpatient Condition FAIR Referrals Joe Renee M.D. (PCP) Forms HOME CARE DOCUMENTATION FORM, IMPORTANT VISIT INFORMATION Patient Instructions [facility] Problem Qualifiers Primary Impression: Vomiting Vomiting type: unspecified Vomiting Intractability: unspecified Nausea presence: with nausea Qualified Codes: R11.2 - Nausea with vomiting, unspecified
--- NOTE | 2016-07-22 07:46 | Discharge Summary ---
Discharge Summary Date of Service Jul 22, 2016. Discharge Summary Admission Date: Jul 20, 2016 at 00:44 Discharge Date: Jul 21, 2016 Discharge Disposition: Home Principal Diagnosis: Viral Gastroenteritis Secondary Diagnoses/Problems: Acute kidney Injury HTN DMII Medication Reconciliation Continued Medications: Albuterol Hfa (Ventolin Hfa) 200 Puffs/41991 Mcg Aers 2 PUFFS INH QID PRN for Shortness of Breath Atorvastatin (Lipitor) 40 Mg Tab 40 MG PO QAM, TAB Calcium/Vitamin D (Os-Rylan 500 Plus D) Tab 1 TAB PO DAILY, TAB Cholecalciferol (Vitamin D3) 1,000 Unit Cap 1000 UNITS PO DAILY Diazepam (Diazepam) 2 Mg Tab 1 TAB PO UD PRN for VERTIGO VERY RARELY USES Dulaglutide (Trulicity) 1.5 Mg/0.5 Ml Inj 1 SYR INJ WK TAKES TUESDAY WITH EVENING MEAL. INSTRUCTED TO BRING TO HOSPITAL Gabapentin (Neurontin) 800 Mg Tab 800 MG PO TID, TAB Insulin Detemir (Levemir Flextouch) 100 Unit/Ml Inj 22 UNITS SC AMPM Insulin Lispro (Human) (Humalog Kwikpen) 100 Unit/Ml Inj 7-10 UNITS SQ TID COVER FACTOR OF 1 UNIT FOR EVERY 25 POINTS OVER 175 Losartan Potassium (Losartan Potassium) 50 Mg Tab 50 MG PO DAILY Multivitamin (Multivitamin) Tab 1 TAB PO QAM, TAB Probiotic Product ([employer] 1 Cap Cap 1 CAP PO HS Tocopheryl Acet,Dl-Alpha (Vitamin E) Unknown Strength Cap Unknown Dose PO DAILY Triamterene/Hctz (Triamterene/Hctz 37.5-25MG) 1 Tab Tab 1 TAB PO QAM, TAB Discontinued Medications: Cephalexin Monohydrate (Keflex) 500 Mg Cap 500 MG PO QID, CAP for 10 days, pt told to stop. Admission Information HPI (per Admitting provider): 66-year-old female followed by Dr. Renee. History of hypertension, diabetes, and other problems noted below. Developed chills, nausea, vomiting, and loose stools about 48 hours prior to admission. No fever or sweats. No abdominal pain. No hematemesis, melena, hematochezia. Recently prescribed doxycycline for bronchitis. . Physical Exam (per Admitting): General Appearance: WD/WN, no apparent distress Head: normocephalic, atraumatic Eyes: normal inspection, PERRL, EOMI, sclerae normal ENT: normal ENT inspection, hearing grossly normal, pharynx normal Neck: supple, thyroid normal, no JVD, trachea midline Respiratory/Chest: + rhonchi (few), + wheezing (mild) Cardiovascular: regular rate, rhythm, no edema, no gallop, no JVD Abdomen/GI: non tender, soft, no organomegaly, no pulsatile mass, + pertinent finding (quite bowel sounds) Extremities/Musculoskelatal: normal inspection, no calf tenderness, no pedal edema Neurologic/Psych: terra cotta roofer II-XII nml as tested (PERRL, EOMI), no motor/sensory deficits (motor strength grossly intact), normal mood/affect, oriented x 3 Skin: normal color, warm/dry, no rash Lymphatic: no adenopathy Hospital Course NAUSEA / VOMITING / DIARRHEA Probable viral gastroenteritis.. Tolerated regular diet Antiemetics PRN. Resolved ACUTE KIDNEY INJURY Serum creatinine 1.7 compared to baseline of 1.0. Acute kidney injury most likely secondary to volume depletion due to GI symptoms. creatine improved to 1.6 Advised pt to avoid nephrotoxic agents such as NSAIDs. Pt wants to leave today Continue IV fluids. I made a close follow up appt for her on Tuesday with Dr. Patel at 9:50 am Check BMP in 2 days HYPERTENSION Hold triamterene/chlorothiazide due to GI symptoms. Continue losartan. Will monitor BP DM TYPE II controlled Last Hba1c 6.5 on 06/18/16 continue monitor BS VTE PROPHYLAXIS Moderate risk for VTE. Subcutaneous enoxaparin. Ambulate. RESUSCITATION STATUS FULL CODE DISPOSITION discharge home today Please follow up with Dr. Andrew (Dr. Renee Partner) on July 23 at 9:50 am Check BMP in 2 days. Script given Hold Losartan and Triamterene/HCTZ until seeing with PCP on Tuesday No NSAIDs for now (such as ibuprofen, motrin, aleve, naproxen) If nausea/vomiting/ diarrhea reoccurs please seek medical attention Total time spent on discharge = 35 minutes This includes examination of the patient, discharge planning, medication reconciliation, and communication with other providers. Discharge Instructions Discharge Instructions Date of Service Jul 21, 2016. Admission Reason for Admission: Intractable Nausea And Vomiting Discharge Discharge Diagnosis / Problem: Gastroenteritis, Acute kidney injury Discharge Goals Goal(s): Decrease discomfort, Improve function, Improve disease control Activity Recommendations Activity Limitations: resume your previous activity (as tolerated) . Instructions / Follow-Up Instructions / Follow-Up Please follow up with Dr. Andrew (Dr. Renee Partner) on July 23 at 9:50 am Check BMP in 2 days. Script given Hold Losartan and Triamterene/HCTZ until seeing with PCP on Tuesday No NSAIDs for now (such as ibuprofen, motrin, aleve, naproxen) If nausea/vomiting/ diarrhea reoccurs please seek medical attention Current Hospital Diet Patient's current hospital diet: Diabetes Type 2 Diet Discharge Diet Recommended Diet: Diabetes Type 2 Diet Pending Studies Studies pending at discharge: no Medical Emergencies . Who to Call and When: Medical Emergencies: If at any time you feel your situation is an emergency, please call 911 immediately. . Non-Emergent Contact Non-Emergency issues call your: Primary Care Provider Call Non-Emergent contact if: you have a fever, you have any medication questions . . "Provider Documentation" section prepared by Abram Gil. VTE Core Measure Inpt VTE Proph given/why not?: Enoxaparin (Lovenox)SQ Additional Copies To Joe Renee M.D.
[2016-08-16] MEDS ORDERED: CLOP1TAB15 PO (11:48)
[2016-08-16] MEDS ORDERED: DIAZ2TAB PO (11:48)
[2016-08-16] MEDS ORDERED: COLE1TAB PO (11:48)
[2016-08-16] MEDS ORDERED: LVMI SC (11:48)
[2016-08-16] MEDS ORDERED: PROBCAP PO (11:48)
[2016-08-16] MEDS ORDERED: DULA1INJ INJ (11:48)
[2016-08-16] MEDS ORDERED: NRN/300 PO (11:48)
[2016-08-16] MEDS ORDERED: NVLGI/PEN SC (11:48)
[2016-08-16] MEDS ORDERED: ATOR-24 PO (11:48)
[2016-08-16] MEDS ORDERED: LOSA50TA6 PO (11:48)
[2016-08-16] MEDS ORDERED: CHOL1000 PO (11:48)
[2016-08-16] MEDS ORDERED: CALC600T9 PO (11:48)
[2016-08-16] MEDS ORDERED: TRAM-10 PO (11:48)
[2016-08-16] MEDS ORDERED: TRIA37.5 PO (11:48)
[2016-08-16] MEDS ORDERED: ONDA8TAB6 PO (11:48)
[2016-08-16] MEDS ORDERED: DULA0.5I INJ (11:49)
[2016-08-16] MEDS ORDERED: VNTHFA/IN INH (11:50)
[2016-09-13] MEDS ORDERED: GABA1CAP5 PO (08:51)
[2016-09-13] MEDS ORDERED: GABA800T PO (08:51)
[2016-09-13] MEDS ORDERED: PRED1SUS OPL (08:54)
[2016-09-13] MEDS ORDERED: BROM0.07 OPL (08:54)
== END 2016-07-21 14:23 | disposition home or self-care (01) | DRG 392 ==
LOC: ENRESERVDT → ENRESERVTM → C.EDB 19:15 → C.4E 07-20 00:21 → OBSVTOIN 07-20 00:44 → EDBEDREQ 07-20 00:50
PROVIDERS: ADMIT Hospitalist; ATTEND Internal Medicine
DX: A08.4 Viral intestinal infection, unspecified (principal); N17.9 Acute kidney failure, unspecified; N18.3 Chronic kidney disease, stage 3 (moderate); E11.21 Type 2 diabetes mellitus with diabetic nephropathy; I12.9 Hypertensive chronic kidney disease with stage 1 through stage 4 chronic kidney disease, or unspecified chronic kidney disease; G51.0 Bell's palsy; E11.43 Type 2 diabetes mellitus with diabetic autonomic (poly)neuropathy; H81.09 Meniere's disease, unspecified ear; M19.90 Unspecified osteoarthritis, unspecified site; K31.84 Gastroparesis

== ENCOUNTER → 2016-08-31 | Day surgery (SDC) | payer BC ==
[2016-08-16 11:51] VITALS: Ht 157.5 cm; Wt 97.7 kg
[~2016-08-31] VITALS: Ht 157.5 cm; Wt 97.7 kg
[~2016-08-31] MED LIST changes: +500ML BSS 0.3ML EPI 1:1000PF IRRIG ONE; +ACETAMINOPHEN 325 MG TAB PO PRN; +AMVISC PLUS 0.8ML SYRINGE INT OCU ONE; +ATOR-24 PO; +BROM0.07 OPL; +BSS FLUSH ONE; +CALC-393 PO; +CALC500C70 PO; -CALC500C73 PO; +CALC600T9 PO; +CEPH500C2 PO; +CHOL1000 PO; -CHOL100010 PO; +CHOL1CAP57 PO; +COLE1TAB PO; +DIAZ2TAB PO; +EpINEphrine INJ 1MG/ML AMP 1 MG/ML AMP ONE; -FLUT0.15; +GABA1CAP5 PO; +GABA800T PO; +INSU3INJ3 SC; -INSUINJ4 SC; +KETOROLAC 0.5% OP SOLN PER DROP CHARGE OPL SCH; -KFL500 PO; +LACTATED RINGER'S 1000ML 500 ML IV SCH; +LIDOCAINE 3.5% OPH GEL PER APPLICATION CHARGE ONE; +LIDOCAINE HCL 1% MPF 2 ML VIAL ONE; +LOSA50TA6 PO; +LVMI SC; -LVNIS100 SQ; +MIDAZOLAM HCL 1 MG/ML 2ML VIAL ONE; +NRN/300 PO; +NVLGI/PEN SC; +OCUCOAT 1 ML SOLN IO ONE; +ONDA8TAB6 PO; +POVIDONE-IODINE OP SOLN 30 ML BTL ONE; +PRED1SUS OPL; +PROPARACAINE 0.5% OP SOLN PER DROP CHARGE OPL SCH; -RXC5 PO; +TOBRAMYCIN/DEXAMETHASONE OPH OINT PER APPLN CHARGE ONE; +TRAM-10 PO; +TRIA37.5 PO; -VITA100C4 PO; +VTME100 PO
[2016-08-31] MEDS: KETOROLAC 0.5% OP SOLN PER DROP CHARGE OPL SCH ×2 (06:30→06:45)
[2016-08-31] MEDS: GATIFLOXACIN OP SOLN PER DROP CHARGE OPL SCH ×2 (06:31→06:46)
[2016-08-31] MEDS: TROPICAMIDE 1% OP SOLN PER DROP CHARGE OPL SCH ×2 (06:42→06:45)
[2016-08-31] MEDS: CYCLOPENTOLATE HCL 1% OP SOLN PER DROP CHARGE OPL SCH ×2 (06:42→06:45)
[2016-08-31] MEDS: PHENYLEPHRINE HCL 2.5% OP SOLN PER DROP CHARGE OPL SCH ×2 (06:44→06:45)
--- NOTE | 2016-08-31 07:00 | History & Physical Bridge - SC ---
H&P Re-Evaluation Bridge Note: I have examined the patient, reviewed the History & Physical and in the interval since the performance of the History & Physical I have noted the following changes of clinical significance: Diagnosis: Left Cataract Procedure: Left Cataract Removal with Lens Implant No changes noted
[2016-08-31 07:21] VITALS: TEMP 36.4
--- NOTE | 2016-08-31 07:21 | Discharge Instructions-SurgCtr ---
Discharge Instructions Date of Service August 31, 2016. Visit Reason for Visit: Cataract Left Eye Discharge Discharge Diagnosis / Problem: cataract Discharge Goals Goal(s): Improve function Activity Recommendations Activity Limitations: per Instructions/Follow-up section Anesthesia . Post Anesthesia Instructions: If you have had General Anesthesia or IV Sedation: * Do not drive today. * Resume driving when surgeon permits. * Do not make important decisions or sign legal documents today. * Call surgeon for: 1. Temperature elevations greater than 101 degrees F. 2. Uncontrollable pain. 3. Excessive bleeding. 4. Persistent nausea and vomiting. 5. Medication intolerance (nausea, vomiting or rash). * For nausea and vomiting use only clear liquids such as: tea, soda, bouillon until nausea subsides, then gradually increase diet as tolerated. * If you have any concerns or questions, call your surgeon's office. If physician is unavailable and it is an emergency, call 911 or go to the nearest emergency room. . Instructions / Follow-Up Instructions / Follow-Up ACTIVITY RECOMMENDATIONS: * No strenuous lifting, jogging or running for 4 days * No swimming or yard work for 1 week. * Limited bending is permitted, such as putting on shoes. RETURN TO SCHOOL/WORK: No work until seen by physician in office. MEDICATIONS: Resume previous medications unless instructed otherwise by your surgeon. This includes eye drops for glaucoma. Zymaxid/Gatifloxacin (hammond cap) - one drop every 2 hours until bedtime Nevanac/Ilevro/Prolensa/Ketorolac (knight cap) - one drop every 4 hours until bedtime Prednisolone (white/pink cap, SHAKE WELL) - one drop every 2 hours until bedtime Starting tomorrow - all 3 drops every 4 hours until seen in the office Optive drops - as needed for discomfort SPECIAL CARE INSTRUCTIONS: * Wear eyeshield when sleeping, for four nights. * You may wear your own glasses or sunglasses while awake. * You may read or watch TV * You may shower and wash your face, but be gentle around the eye and pat dry. * Blurry vision and mild irritation are normal. * Call office if pain is more severe or vision becomes dark at . FOLLOW UP VISIT: Follow-up with Dr Cade tomorrow. Diet Recommendations Home Diet: resume previous diet Procedures Procedures Performed: Left Cataract Phacoemulsification With Intraocular Lens Implant Pending Studies Studies pending at discharge: no Medical Emergencies . Who to Call and When: Medical Emergencies: If at any time you feel your situation is an emergency, please call 911 immediately. . Non-Emergent Contact Non-Emergency issues call your: Tunnel Heading Inspector . . "Provider Documentation" section prepared by Rodriguez Cade. .
--- NOTE | 2016-08-31 07:22 | [facility] Operative Report ---
Operative Report Date of Service August 31, 2016. Operative Report 1. PREOPERATIVE DIAGNOSIS: Cataract of the left eye. 2. POSTOPERATIVE DIAGNOSIS: Same. 3. PROCEDURE: Phacoemulsification with intraocular lens implantation of the left eye. SURGEON: Dr. Rodriguez Cade. ANESTHESIA: Topical Lidocaine gel, 1% Non- Preserved intracameral Lidocaine, and monitored intravenous sedation. INDICATIONS FOR THE PROCEDURE: The patient is a 66 - year-old female with a history of cataract of the left eye causing significant visual impairment. The details of the proposed procedure were explained to the patient who asked appropriate questions and following discussion of all risks, benefits and alternatives agreed to have the procedure done. 4. OPERATION AND FINDINGS: DESCRIPTION OF PROCEDURE: After informed consent was obtained, the patient was brought to the Operating Room at the [facility]. The patient was placed in a supine position and then the left eye was prepped and draped in the usual sterile fashion for intraocular surgery. A drop of topical Lidocaine gel was placed in the operative eye. A wire lid speculum was then placed in the fornices. A corneal paracentesis was then created temporally. The Non-Preserved Lidocaine was then instilled into the anterior chamber. The anterior chamber was then pressurized with viscoelastic. A 2.0 mm clear corneal incision was then created temporally. A cystotome was inserted into the anterior chamber and used to create a tear in the anterior lens capsule. This capsular tear was then used to create a small flap and the flap was dragged in a counterclockwise direction in order to create a continuous curvilinear capsulorrhexis. Hydrodissection was accomplished with balanced salt solution. Phacoemulsification of the lens nucleus was then performed in a standard [id number] technique. The phaco time was 35 seconds with an average power of 10 %. The remaining cortical material was removed using irrigation aspiration. The capsular bag was then filled with viscoelastic. A [employer] MI60L +20.0 diopters lens was then loaded into the injector and injected into the capsular bag. The remaining viscoelastic was removed with the irrigation aspiration handpiece. The wound was hydrated and then checked and found to be watertight. The intraocular pressure was checked and found to be adequate. The wire lid speculum was removed and the patient's face was cleaned and dried. TobraDex ointment was placed in the inferior fornix. The patient was discharged to the Recovery Room having tolerated the procedure well. There were no complications. The patient will be seen tomorrow in the office for follow-up. I attest to the content of the Intraoperative Record and any orders documented therein. Any exceptions are noted below.
[2016-08-31 07:45] VITALS: BP 138/86; PULSE 64; O2SAT 98
--- NOTE | 2016-08-31 07:48 | Anesthesia Progress Nt - [facility] ---
Anesthesia Post Op Note Date & Time August 31, 2016 at 07:48 Vital Signs Pain Intensity: 0 Vital Signs Past 12 Hours Date Time Temp Pulse Resp B/P Pulse Ox O2 Delivery O2 Flow Rate FiO2 08/31/16 07:21 36.4 70 20 125/78 99 Room Air 08/31/16 06:32 36.7 73 20 131/83 98 Room Air Notes Mental Status: alert / awake / arousable, participated in evaluation Pt Amnestic to Procedure: No (recall as expected) Nausea / Vomiting: adequately controlled Pain: adequately controlled Airway Patency, RR, SpO2: stable & adequate BP & HR: stable & adequate Hydration State: stable & adequate Anesthetic Complications: no major complications apparent Pt doing very well.
== END | disposition home or self-care (01) ==
LOC: X.SURG 06:08
PROVIDERS: ATTEND Ophthalmology
DX: H26.9 Unspecified cataract (principal); E11.36 Type 2 diabetes mellitus with diabetic cataract; N18.3 Chronic kidney disease, stage 3 (moderate); M19.90 Unspecified osteoarthritis, unspecified site; K21.9 Gastro-esophageal reflux disease without esophagitis; E78.5 Hyperlipidemia, unspecified; G51.0 Bell's palsy; Z79.4 Long term (current) use of insulin; Z79.02 Long term (current) use of antithrombotics/antiplatelets; Z87.891 Personal history of nicotine dependence; Z86.73 Personal history of transient ischemic attack (TIA), and cerebral infarction without residual deficits; E66.9 Obesity, unspecified; Z68.41 Body mass index [BMI] 40.0-44.9, adult

== ENCOUNTER 2016-10-27 05:10 | Emergency (ER) | payer BC ==
[~2016-10-27] VITALS: Ht 157.5 cm; Wt 100.9 kg
[~2016-10-27 05:10] MED LIST changes: -500ML BSS 0.3ML EPI 1:1000PF IRRIG ONE; -ACETAMINOPHEN 325 MG TAB PO PRN; -AMVISC PLUS 0.8ML SYRINGE INT OCU ONE; -BSS FLUSH ONE; -CALC-393 PO; -EpINEphrine INJ 1MG/ML AMP 1 MG/ML AMP ONE; -GABA-113 PO; -KETOROLAC 0.5% OP SOLN PER DROP CHARGE OPL SCH; -LACTATED RINGER'S 1000ML 500 ML IV SCH; -LIDOCAINE 3.5% OPH GEL PER APPLICATION CHARGE ONE; -LIDOCAINE HCL 1% MPF 2 ML VIAL ONE; -MIDAZOLAM HCL 1 MG/ML 2ML VIAL ONE; -NRN/300 PO; -OCUCOAT 1 ML SOLN IO ONE; -POVIDONE-IODINE OP SOLN 30 ML BTL ONE; -PROPARACAINE 0.5% OP SOLN PER DROP CHARGE OPL SCH; -TOBRAMYCIN/DEXAMETHASONE OPH OINT PER APPLN CHARGE ONE
[2016-10-27 05:14] VITALS: TEMP 36.5; Ht 157.5 cm; Wt 100.9 kg
[2016-10-27] MEDS ORDERED: CALC-393 PO (05:47)
[2016-10-27] MEDS ORDERED: GABA-113 PO ×2 (05:47)
[2016-10-27 06:08] LABS: BASO % 0.1 %; BASO ABS # 0.01 K/uL (0-0.2); COMPLETE YES; EOS % 2.1 %; HEMATOCRIT 36.5 % (37-47); IG% 0.1 %; LYMPH % 15.1 %; LYMPH ABS # 1.32 K/uL (1.2-3.4); MEAN CELL VOLUME 82.8 fL (80-100); MEAN CORPUSCULAR HEMOGLOBIN 25.9 pg (25-34); MEAN CORPUSCULAR HGB CONC 31.2 g/dl (32-36); MEAN PLATELET VOLUME 9.3 fL (7.4-10.4); MONO % 10.6 %; PLATELET COUNT 396 K/uL (130-400); RED BLOOD COUNT 4.41 M/uL (4.2-5.4); WHITE BLOOD COUNT 8.77 K/uL (4.8-10.8)
[2016-10-27 06:23] LABS: BUN/CREATININE RATIO 21.9 (10-20); CALCIUM 8.6 mg/dl (8.5-10.1); CREATININE 1.5 mg/dl (0.60-1.20); POTASSIUM 4.1 mmol/L (3.5-5.1)
[2016-10-27 06:26] LABS: ALB/GLOB RATIO 1.1 (0.9-2)
--- NOTE | 2016-10-27 06:31 | DIAGNOSTIC IMAGING REPORT ---
CHEST 2 VIEWS ROUTINE CLINICAL HISTORY: Right chest pain pain COMPARISON STUDY: 07/19/2016 FINDINGS: Chronic pleural and parenchymal changes left midlung and right base. Old fractures of the right third and fourth ribs. No acute intrathoracic abnormality. No significant cardiac enlargement. IMPRESSION: Chronic change. No acute process. Electronically signed by: Joe Reeder M.D. 10/27/2016 6:29 AM Dictated Date/Time: 10/27/2016 6:28 AM
--- NOTE | 2016-10-27 06:57 | DIAGNOSTIC IMAGING REPORT ---
RIGHT PELVIS/UNILATERAL HIP 2-3VIEWS CLINICAL HISTORY: Right hip pains Right pain COMPARISON: None. DISCUSSION: Status post total left hip replacement. Good contact between prosthetic and underlying bone. Right hip shows no acute bony abnormality. Mild degenerative changes of the sacroiliac joints as well as symphysis pubis. There is no evidence for soft tissue swelling. IMPRESSION: No acute bony abnormality. Status post total left hip arthroplasty. Electronically signed by: Joe Reeder M.D. 10/27/2016 6:55 AM Dictated Date/Time: 10/27/2016 6:55 AM
--- NOTE | 2016-10-27 06:59 | EMERGENCY ROOM VISIT NOTE ---
ED Visit Note First contact with patient: 05:26 Staff note: I have reviewed the Patients chart and have discussed this case with my PA. I generally agree with the ED note and findings.
[2016-10-27 07:10] VITALS: BP 145/83; PULSE 75; O2SAT 98
--- NOTE | 2016-10-27 07:47 | EMERGENCY ROOM VISIT NOTE ---
History First contact with patient: 05:26 Chief Complaint: HIP PAIN Stated Complaint: SEVERE PAIN FROM RT HIP TO KNEE,HEARTBURN History of Present Illness The patient is a 66 year old female who presents to the Emergency Room with complaints of worsening right hip pain over the past 4 or 5 days. The patient states that she had a fall 2 weeks ago, but was doing well. The patient states that she hasn't slow and progressive discomfort with ambulation. The patient is also complaining of vague right-sided chest pain that has been off and on for the past 5 or 6 days. Patient has not had fever or chills. No shortness of breath or palpitations. No abdominal or back pain. She has been able to use the bathroom is normal. The patient does follow with orthopedics for her left hip, which was replaced a few years ago. The patient states that she is now using a cane to ambulate because of the discomfort. She does have tramadol at home, but has not taken this. Review of Systems More than 10 systems were reviewed and otherwise negative with the exception of history of present illness. Past Medical/Surgical History Medical Problems: (1) Garza's palsy (2) CKD (chronic kidney disease), stage III (3) CVA (cerebral vascular accident) (4) DM type 2 (diabetes mellitus, type 2) (5) Dyslipidemia (6) Gastroparesis (7) GERD (gastroesophageal reflux disease) (8) Intractable nausea and vomiting (9) Meniere disease (10) BEE (obstructive sleep apnea) (11) Osteoarthritis (12) Osteoporosis Surgical Problems: (1) H/O laminectomy (2) H/O oophorectomy (3) History of carpal tunnel surgery of left wrist (4) History of carpal tunnel surgery of right wrist (5) History of total left hip arthroplasty (6) L femur ORIF (7) S/P EHSAN (total abdominal hysterectomy) (8) S/P trigger finger release Family History Diabetes mellitus FATHER Social History Smoking Status: Former Smoker Alcohol Use: none Drug Use: none Housing Status: lives with family Current/Historical Medications Scheduled Atorvastatin (Lipitor), 40 MG PO QAM Calcium Carbonate (Calcium), 600 MG PO BID Cholecalciferol (Vitamin D3), 1 TAB PO QAM Clopidogrel (Plavix), 75 MG PO QAM Colestipol Hcl (Colestid), 1 GM PO BID Dulaglutide (Trulicity), 1 DOSE INJ WK Gabapentin (Neurontin), 300 MG PO QAM Gabapentin (Neurontin), 600 MG PO HS Insulin Aspart (Novolog Flexpen), UNITS SC UD Insulin Detemir (Levemir), 22 UNITS SC BID Losartan Potassium (Cozaar), 50 MG PO QAM Probiotic Product (FreshT), 1 CAP PO QPM Triamterene/Hctz (Dyazide 37.5MG/25MG), 1 TAB PO QAM Scheduled PRN Albuterol Hfa (Ventolin Hfa), 2-4 PUFFS INH Q6H PRN for SOB/Wheezing Diazepam (Valium), 2 MG PO UD PRN for DIZZINESS/VERTIGO Ondansetron Hcl (Zofran), 8 MG PO BID PRN for Nausea Tramadol (Ultram), 50 MG PO Q4H PRN for Pain Allergies Coded Allergies: Diphenhydramine (Verified Allergy, Mild, "SHAKING AND BODY SWELLING", ) Promethazine (Verified Allergy, Mild, "SHAKING", 10/27/16) NSAIDs (Verified Allergy, Unknown, PT SWELLS "HEAD TO TOE", 10/27/16) Physical Exam Vital Signs Date Time Temp Pulse Resp B/P (MAP) Pulse Ox O2 Delivery O2 Flow Rate FiO2 10/27/16 07:10 75 18 145/83 98 10/27/16 05:14 36.5 77 20 149/65 98 Room Air Pain Rating (0-10): 3.0 Physical Exam VITALS: Vitals are noted on the nurse's note and reviewed by myself. Vital signs stable. GENERAL: Well-developed, well-nourished, white female, who is in no acute distress and resting comfortably. Patient is cooperative with the examination. HEAD: Normocephalic atraumatic. HEART: Regular rate and rhythm without murmurs gallops or rubs. LUNGS: Clear to auscultation bilaterally without wheezes, rales or rhonchi. No retractions or accessory muscle use. MUSCULOSKELETAL: No muscle atrophy, erythema, or edema noted. No significant tenderness of the right hip is a appreciated. There is no shortening or rotation of the right lower extremity. The patient is able to ambulate with a walk and a cane. Neurovascular status is intact. NEURO: Patient was alert and oriented to person place and time. CN II through XII grossly intact. Medical Decision & Procedures ER Provider Diagnostic Interpretation: CHEST 2 VIEWS ROUTINE CLINICAL HISTORY: Right chest pain pain COMPARISON STUDY: 07/19/2016 FINDINGS: Chronic pleural and parenchymal changes left midlung and right base. Old fractures of the right third and fourth ribs. No acute intrathoracic abnormality. No significant cardiac enlargement. IMPRESSION: Chronic change. No acute process. RIGHT PELVIS/UNILATERAL HIP 2-3VIEWS CLINICAL HISTORY: Right hip pains Right pain COMPARISON: None. DISCUSSION: Status post total left hip replacement. Good contact between prosthetic and underlying bone. Right hip shows no acute bony abnormality. Mild degenerative changes of the sacroiliac joints as well as symphysis pubis. There is no evidence for soft tissue swelling. IMPRESSION: No acute bony abnormality. Status post total left hip arthroplasty. Laboratory Results 10/27/16 05:56 Red Blood Count 4.41, Mean Corpuscular Volume 82.8, Mean Corpuscular Hemoglobin 25.9, Mean Corpuscular Hemoglobin Concent 31.2, Mean Platelet Volume 9.3, Neutrophils (%) (Auto) 72.0, Lymphocytes (%) (Auto) 15.1, Monocytes (%) (Auto) 10.6, Eosinophils (%) (Auto) 2.1, Basophils (%) (Auto) 0.1, Neutrophils # (Auto ) 6.32, Lymphocytes # (Auto) 1.32, Monocytes # (Auto) 0.93, Eosinophils # (Auto ) 0.18, Basophils # (Auto) 0.01 10/27/16 05:56 Test 10/27/16 05:56 10/27/16 06:04 White Blood Count 8.77 K/uL (4.8-10.8) Red Blood Count 4.41 M/uL (4.2-5.4) Hemoglobin 11.4 g/dL (12.0-16.0) Hematocrit 36.5 % (37-47) Mean Corpuscular Volume 82.8 fL (80-100) Mean Corpuscular Hemoglobin 25.9 pg (25-34) Mean Corpuscular Hemoglobin Concent 31.2 g/dl (32-36) Platelet Count 396 K/uL (130-400) Mean Platelet Volume 9.3 fL (7.4-10.4) Neutrophils (%) (Auto) 72.0 % Lymphocytes (%) (Auto) 15.1 % Monocytes (%) (Auto) 10.6 % Eosinophils (%) (Auto) 2.1 % Basophils (%) (Auto) 0.1 % Neutrophils # (Auto) 6.32 K/uL (1.4-6.5) Lymphocytes # (Auto) 1.32 K/uL (1.2-3.4) Monocytes # (Auto) 0.93 K/uL (0.11-0.59) Eosinophils # (Auto) 0.18 K/uL (0-0.5) Basophils # (Auto) 0.01 K/uL (0-0.2) RDW Standard Deviation 50.3 fL (36.4-46.3) RDW Coefficient of Variation 16.4 % (11.5-14.5) Immature Granulocyte % (Auto) 0.1 % Immature Granulocyte # (Auto) 0.01 K/uL (0.00-0.02) Anion Gap 8.0 mmol/L (3-11) Est Creatinine Clear Calc Drug Dose 39.9 ml/min Estimated GFR () 41.1 Estimated GFR (Non- 35.4 BUN/Creatinine Ratio 21.9 (10-20) Calcium Level 8.6 mg/dl (8.5-10.1) Total Bilirubin 0.3 mg/dl (0.2-1) Aspartate Amino Transf (AST/SGOT) 10 U/L (15-37) Alanine Aminotransferase (ALT/SGPT) 17 U/L (12-78) Alkaline Phosphatase 84 U/L (45-117) Total Protein 6.8 gm/dl (6.4-8.2) Albumin 3.6 gm/dl (3.4-5.0) Globulin 3.2 gm/dl (2.5-4.0) Albumin/Globulin Ratio 1.1 (0.9-2) Lipase 76 U/L (73-393) Bedside Troponin I < 0.030 ng/ml (0-0.045) ED Course Physical exam and history were performed. Nursing notes and EMR were reviewed. Patient appears to have both right-sided hip pain and right-sided chest wall pain. The patient does not appear toxic on examination. IV access was established and labs were obtained. EKG was normal sinus rhythm without acute ST elevation. X-rays were performed. The patient's blood work is as above and was reviewed. She does not have a significantly elevated white blood cell count or gross anemia, bandemia, or significant electrolyte imbalance. Lipase and transaminases are nondiagnostic. Troponin is negative. Chest x-ray does not show new or acute findings. Her hip x-ray is also without acute findings. Overall the case was discussed with my attending physician, Dr. Aranda, who also independently evaluated the patient. The patient does not appear to have an acute cardiopulmonary event causing her chest discomfort. Her hip pain is likely the result of chronic arthritis or possibly a sprain/strain. The patient has tramadol at home, and she states she is able to take Aleve. The patient may use these medications at home. She does follow with orthopedics and will be referred back to their care. The patient was educated on preventing falls, as she is likely a high risk for falling at this time. The patient was certainly invited back to the emergency department with any new, worsening, or concerning symptoms. She voiced understanding of this plan and was pleased with plan of care. She rated her discomfort a 2/10 at the time of departure. The chart was completed utilizing [employer] Voice Recognition Software. Grammatical errors, random word insertions, pronoun errors, and incomplete sentences are an occasional consequence of this system due to software limitations, ambient noise, and hardware issues. Any formal questions or concerns about the content, text, or information contained within the body of this dictation should be directly addressed to the provider for clarification. . Medical Decision Differential diagnosis includes, but is not limited to: Sprain, strain, fracture dislocation, subluxation, contusion, cardiopulmonary event, and others Impression Primary Impression: Right hip pain Additional Impression: Right-sided chest pain Departure Information Dispostion Home / Self-Care Condition GOOD Forms HOME CARE DOCUMENTATION FORM, IMPORTANT VISIT INFORMATION Patient Instructions My [facility] Additional Instructions You were seen and evaluated today on an emergency basis only. This is not a substitute for, or an effort to provide, complete comprehensive medical care. It is not possible to recognize and treat all injuries or illnesses in a single emergency department visit. For this reason it is recommended that you followup with your orthopedist by telephone today to make a follow-up appointment. Continue your at-home medications. Rest for the next few days. Continue to use your cane to help with walking. Take every precaution to prevent falling You are welcome to return to the emergency department anytime with new, worsening, or concerning symptoms. Problem Qualifiers
== END 2016-10-27 07:12 | disposition home or self-care (01) ==
LOC: C.EDB 05:11
DX: M25.551 Pain in right hip (principal); R07.9 Chest pain, unspecified; G51.0 Bell's palsy; N18.3 Chronic kidney disease, stage 3 (moderate); E11.43 Type 2 diabetes mellitus with diabetic autonomic (poly)neuropathy; E11.22 Type 2 diabetes mellitus with diabetic chronic kidney disease; E78.5 Hyperlipidemia, unspecified; K21.9 Gastro-esophageal reflux disease without esophagitis; H81.09 Meniere's disease, unspecified ear; G47.33 Obstructive sleep apnea (adult) (pediatric); M19.90 Unspecified osteoarthritis, unspecified site; M81.0 Age-related osteoporosis without current pathological fracture; Z90.710 Acquired absence of both cervix and uterus; Z96.642 Presence of left artificial hip joint; Z83.3 Family history of diabetes mellitus; Z79.4 Long term (current) use of insulin; Z79.899 Other long term (current) drug therapy; Z79.01 Long term (current) use of anticoagulants